=== PATIENT | male | born 1965 | race African-American/Black ===

== ENCOUNTER 2023-01-03 14:39 | Emergency (ER) | payer MEDICAID ==
[~2023-01-03] VITALS: Ht 170.2 cm; Wt 69.0 kg
[2023-01-03 14:49] VITALS: BP 141/89
[2023-01-03 17:21] LABS: CLARITY URINE CLEAR (CLEAR); COLOR URINE YELLOW (YELLOW); KETONES URINE NEGATIVE (NEGATIVE); LEUKOCYTE ESTERASE URINE NEGATIVE (NEGATIVE); NITRITE URINE NEGATIVE (NEGATIVE); OCCULT BLOOD URINE NEGATIVE (NEGATIVE); PH URINE 6.5 (4.5-8.0); PROTEIN URINE NEGATIVE (NEGATIVE); SPECIFIC GRAVITY URINE 1.019 (1.005-1.030)
[2023-01-03 17:35] LABS: BASOPHILS % 0.6 % (0.0-2.0); EOSINOPHILS % 1.7 % (0.0-5.0); HEMATOCRIT. 39.8 % (42.0-52.0); HEMOGLOBIN. 13.4 g/dL (14.0-18.0); LYMPHOCYTES % 17.2 % (20.0-50.0); MEAN CORPUSCULAR HEMOGLOBIN 29.9 pg (28.0-32.0); MEAN CORPUSCULAR VOLUME 88.5 fL (80.0-94.0); MONOCYTES % 10.5 % (2.0-8.0); PLATELET 264 x1000/uL (130-400); RED BLOOD CELL COUNT 4.49 mill/uL (4.7-6.1)
[2023-01-03 17:56] LABS: CHLORIDE 109 mEq/L (98-107)
== END 2023-01-03 22:17 | disposition home or self-care (01) ==
LOC: ER 14:39
DX: R10.9 Unspecified abdominal pain (principal); I10 Essential (primary) hypertension
CPT/HCPCS: 36415; 80053; 81003; 85025; 99283

== ENCOUNTER 2023-01-16 13:00 | Emergency (ER) | payer MEDICAID ==
[~2023-01-16] VITALS: Ht 170.2 cm; Wt 83.0 kg
[2023-01-16 13:27] VITALS: BP 171/108
[2023-01-16] MEDS ORDERED: CEPH500C2 MT (20:43)
[2023-01-16] MEDS ORDERED: MUPI15CR11 TP (20:43)
[2023-01-16] MEDS ORDERED: SULF1TAB48 MT (20:43)
== END 2023-01-16 21:04 | disposition home or self-care (01) ==
LOC: ER 13:00
DX: S61.401A Unspecified open wound of right hand, initial encounter (principal); L03.113 Cellulitis of right upper limb; L98.499 Non-pressure chronic ulcer of skin of other sites with unspecified severity; X58.XXXA Exposure to other specified factors, initial encounter; Y93.89 Activity, other specified; Y92.89 Other specified places as the place of occurrence of the external cause; I10 Essential (primary) hypertension; F31.9 Bipolar disorder, unspecified
CPT/HCPCS: 99283